=== PATIENT | female | born 1940 | race Caucasian/White ===

== ENCOUNTER → 2020-12-23 08:46 | Outpatient (BNVA) | payer MEDICARE, SELFPAY | PROVIDERS: PCP Internal Medicine; Visit Provider Urology | DX: N32.81 Overactive bladder (principal); N39.41 Urge incontinence | CPT/HCPCS: 51798; 99212 ==

== ENCOUNTER → 2021-03-23 10:41 | Outpatient (BNVA) | payer MEDICARE, SELFPAY | PROVIDERS: PCP Internal Medicine | DX: N32.81 Overactive bladder (principal); N39.41 Urge incontinence | CPT/HCPCS: Q3014 ==